=== PATIENT | female | born 1950 | race Caucasian/White ===

== ENCOUNTER → 2017-01-12 | Outpatient (CLI) | payer MEDICARE ==
[~2017-01-12] MED LIST: LEVE500T56 PO
--- NOTE | 2017-01-12 14:04 | CARD ---
APPROVED REPORT EXAM: LIMITED Two-dimensional echocardiogram. Other Information Quality : GoodHR: 51bpm Rhythm : Bradycardia INDICATION Breast cancer RISK FACTORS Hypertension Obesity 2D DIMENSIONS RVDd3.1 (2.9-3.5cm)Left Atrium(2D)4.7 (1.6-4.0cm) IVSd1.1 (0.7-1.1cm)Aortic Root(2D)2.3 (2.0-3.7cm) LVDd3.5 (3.9-5.9cm)LVOT Diameter2.2 (1.8-2.4cm) PWd1.1 (0.7-1.1cm)LVDs2.2 (2.5-4.0cm) FS (%) 36.8 %SV33.7 ml LVEF(%)67.7 (>50%) LEFT VENTRICLE The left ventricle is normal size. There is mild concentric left ventricular hypertrophy. The left ve ntricular systolic function is normal and the ejection fraction is within normal range. The Ejection Fraction is 65-70%. There is normal LV segmental wall motion. RIGHT VENTRICLE The right ventricle is normal size. There is normal right ventricular wall thickness. The right ventr icular systolic function is normal. ATRIA The left atrium is severely dilated. The right atrium size is normal. AORTIC VALVE The aortic valve is normal in structure and function. GREAT VESSELS The aortic root is normal in size. The ascending aorta is normal in size. The IVC is normal in size a nd collapses >50% with inspiration. PERICARDIAL EFFUSION There is no evidence of significant pericardial effusion. Critical Notification Critical Value: No <Conclusion> The left ventricular systolic function is normal and the ejection fraction is within normal range. Th e Ejection Fraction is 65-70%. There is normal LV segmental wall motion. The left atrium is severely dilated.
== END | disposition home or self-care (01) ==
LOC: ECHO 09:52
PROVIDERS: ATTEND Internal Medicine Hematology & Oncology
DX: C50.919 Malignant neoplasm of unspecified site of unspecified female breast (principal); I51.7 Cardiomegaly
CPT/HCPCS: 93308

== ENCOUNTER → 2018-03-16 | Day surgery (SDC) | payer MEDICARE ==
[~2018-03-16] MED LIST changes: -LEVE500T56 PO; +LIDOCAINE 2% PF Vial for OR 5 ML VIAL.; +PROPOFOL 0 ML IV; +PROPOFOL 20 ML IV
== END | disposition home or self-care (01) ==
LOC: SURG 09:05
DX: Z12.11 Encounter for screening for malignant neoplasm of colon (principal); K64.0 First degree hemorrhoids; K57.30 Diverticulosis of large intestine without perforation or abscess without bleeding; I10 Essential (primary) hypertension; E03.9 Hypothyroidism, unspecified; Z85.3 Personal history of malignant neoplasm of breast; Z86.010 Personal history of colon polyps; Z90.49 Acquired absence of other specified parts of digestive tract; Z79.899 Other long term (current) drug therapy; Z90.710 Acquired absence of both cervix and uterus; Z98.51 Tubal ligation status; Z98.890 Other specified postprocedural states; Z80.0 Family history of malignant neoplasm of digestive organs; Z82.49 Family history of ischemic heart disease and other diseases of the circulatory system; Z88.8 Allergy status to other drugs, medicaments and biological substances
CPT/HCPCS: G0105; J2704

== ENCOUNTER → 2019-02-14 | Outpatient (CLI) | payer MEDICARE ==
[2018-03-16 10:12] VITALS: BP 114/70
[~2019-02-14] MED LIST changes: +LEVE500T56 PO; +LEVO125T5 PO; -LIDOCAINE 2% PF Vial for OR 5 ML VIAL.; +LISI-334 PO; -PROPOFOL 0 ML IV; -PROPOFOL 20 ML IV
--- NOTE | 2019-02-14 14:17 | KCIC ---
EXAM: AP, lateral and tangential patellar views left knee DATE: 02/14/2019 12:00 AM INDICATION: Left knee pain COMPARISON: No Prior FINDINGS: No evidence of acute fracture or dislocation. Decreased bone mineral density. Moderate medial compartment joint space narrowing with tricompartmental osteophytes. No knee joint effusion. Subtle calcifications of the joint line likely chondrocalcinosis. Borderline lateral patellar tracking. IMPRESSION: 1. No evidence of acute fracture or dislocation. 2. Left knee joint osteoarthritis with medial compartment joint space narrowing. 3. Subtle joint line calcification likely chondrocalcinosis and CPPD arthropathy. Electronically signed by: Yoav Roca MD (02/14/2019 2:09 PM) [facility]-KCIC2
== END | disposition home or self-care (01) ==
LOC: KCIC 10:22
PROVIDERS: ATTEND Nurse Practitioner Gerontology
DX: M17.12 Unilateral primary osteoarthritis, left knee (principal); M25.762 Osteophyte, left knee
CPT/HCPCS: 73562

== ENCOUNTER → 2020-05-04 | Outpatient (CLI) | payer MEDICARE ==
[2018-03-16 10:12] VITALS: BP 114/70
[~2020-05-04] MED LIST changes: +ASPI81TA59 PO
== END | disposition home or self-care (01) ==
LOC: LAB 13:58
PROVIDERS: ATTEND Internal Medicine Gastroenterology
DX: Z11.59 Encounter for screening for other viral diseases (principal)
CPT/HCPCS: U0003-CS

== ENCOUNTER → 2020-05-08 | Day surgery (SDC) | payer MEDICARE ==
[~2020-05-08] MED LIST changes: +IV RINGERS,LACTATED 1000ML 1,000 ML IV SCH; +ONDANSETRON PF 4 MG/2 ML VIAL. IV PRN; +PROCHLORPERAZINE 10 MG/2 ML VIAL. IV PRN; +PROPOFOL 10 MG/ML (20ML) VIAL. IV ONE; +fentaNYL PF VIAL 100 MCG/2 ML VIAL IV PRN
[2020-05-08 09:37] VITALS: BP 154/72
--- NOTE | 2020-05-08 14:35 | CONS ---
DATE OF CONSULTATION: 05/08/2020 REFERRING PHYSICIAN: Cesar Bhatia. REASON FOR CONSULTATION: MSH2 breast cancer gene, increased risk of gastric cancer and GERD. HISTORY OF PRESENT ILLNESS: A 70-year-old female with past medical history significant for hypothyroidism, hypertension, and history of colonic polyps, who is seen for interval endoscopy. She does have increased heartburn. She also has MSH2 positive gene, which increases the risk of gastric cancer and endoscopy is recommended to further assess. There has been no weight loss, no change in appetite. No bleeding. She is otherwise without additional complaints. PAST MEDICAL HISTORY: Significant for hypertension, hypothyroidism, and history of colonic polyps. FAMILY HISTORY: Breast cancer with MSH2 gene. ALLERGIES: SULFA, CODEINE, AND ACTOS. MEDICATIONS: Include aspirin, Keppra, levothyroxine, and lisinopril. FAMILY AND SOCIAL HISTORY: She is a nondrinker and nonsmoker. PAST SURGICAL HISTORY: Appendectomy, breast surgery, , cholecystectomy, eye surgery, hysterectomy, tonsillectomy, and tubal ligation. REVIEW OF SYSTEMS: Per records. PHYSICAL EXAMINATION: GENERAL: Reveals a well-nourished, well-developed female, alert, cooperative, in no acute distress. VITAL SIGNS: Temperature 97.5, pulse 61, and respirations 20. LUNGS: Clear. CARDIOVASCULAR: Reveals an S1 and S2 without S3, S4 or appreciable murmur. ABDOMEN: With a soft abdomen, normal bowel sounds, without appreciable hepatosplenomegaly. Multiple surgical incisions. EXTREMITIES: Reveals no cyanosis, clubbing or edema. IMPRESSION: Reflux with MSH2 gene, increased risk of gastric cancer. Interval EGD is recommended. Risks and benefits of procedure including risk of hemorrhage and perforation were discussed. The patient is willing to proceed at this time. ROBB BABB MD DR: NIGHAT/cherry JOB#: [id number] / [id number] LAURA Avery MD, W MD
--- NOTE | 2020-05-11 16:06 | PATHOLOGY ---
[facility] Accession Number: [id number] . 01 Material submitted: . PART A: stomach - GASTRIC BODY POLYP PART B: esophagus - ESOPHAGEAL BX . 01 Clinical history: . MSH2 gene mutation . 02 Diagnosis: A. Gastric biopsies, gastric body polyps; - Funduc gland polyps, with focal mild chronic inflammation. . B. 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 (JPM:balaji; 05/11/2020) S 05/11/2020 0921 Local . 02 Comment: Sections of the gastric biopsy reveal two fundic gland polyps showing focal mild chronic inflammation. There are no adenomatous changes or evidence of malignancy. . 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 There is no dysplasia or evidence of malignancy. (JPM:balaji; 05/11/2020) . 02 Electronically signed: . Tristan Cameron MD, Pathologist NPI- [id number] . 01 Gross description: . A. The specimen is received in formalin, labeled "Loretta, Samantha, gastric body polyp" and consists of 2 fragments of pink-mary tissue measuring 0.3 x 0.3 cm which are entirely submitted in A1. . B. The specimen is received in formalin, labeled "Devault, Samantha, esophageal BX rule out Garrison's" and consists of 3 fragments of pink-amry tissue measuring between 0.2 x 0.2 cm and 0.3 x 0.3 cm which are entirely submitted in B1. (SDY; 05/08/2020) SYU/SYU 05/08/2020 1617 Local . 02 Pathologist provided ICD-10: K31.7, K20.9 . 02 CPT . 856644, [id number] Specimen Comment: A courtesy copy of this report has been sent to [phone], [phone] Specimen Comment: [id number], Specimen Comment: Report sent to ,DR MORALES / DR PRATER Performed at: [address] [facility] [address], [place] [id number] MD Cesar Arnold MD Phone: [phone] Performed at: 02 [facility] [place] [address] [place], [place] [id number] MD Tristan Cameron MD Phone: [phone]
== END ==
LOC: ENDOS 07:37
PROVIDERS: ATTEND Internal Medicine Gastroenterology
DX: K21.0 Gastro-esophageal reflux disease with esophagitis (principal); K29.50 Unspecified chronic gastritis without bleeding; K31.7 Polyp of stomach and duodenum; I10 Essential (primary) hypertension; E78.00 Pure hypercholesterolemia, unspecified; E03.9 Hypothyroidism, unspecified; Z88.1 Allergy status to other antibiotic agents; Z88.5 Allergy status to narcotic agent; Z88.8 Allergy status to other drugs, medicaments and biological substances; Z90.49 Acquired absence of other specified parts of digestive tract; Z90.710 Acquired absence of both cervix and uterus; Z98.890 Other specified postprocedural states; Z98.51 Tubal ligation status
CPT/HCPCS: 43239; 88305; J2704

== ENCOUNTER → 2021-08-09 | Outpatient (CLI) | payer MEDICARE ==
[2020-05-08 09:37] VITALS: BP 154/72
[~2021-08-09] MED LIST changes: -IV RINGERS,LACTATED 1000ML 1,000 ML IV SCH; -LISI-334 PO; +LISI20TA18 PO; -ONDANSETRON PF 4 MG/2 ML VIAL. IV PRN; -PROCHLORPERAZINE 10 MG/2 ML VIAL. IV PRN; -PROPOFOL 10 MG/ML (20ML) VIAL. IV ONE; -fentaNYL PF VIAL 100 MCG/2 ML VIAL IV PRN
--- NOTE | 2021-08-09 12:02 | KCIC ---
EXAM: Right knee, 3 views. HISTORY: Chronic pain. COMPARISON: 02/14/2019 FINDINGS: 3 views of the right knee are obtained. There is medial compartment joint space narrowing, subchondral sclerosis and spurring. There is mild lateral and patellofemoral compartment spurring. Th ere is a small joint effusion. There is no fracture, dislocation or subluxation. IMPRESSION: Mild medial compartment predominant osteoarthritis of the right knee with small joint eff usion. Electronically signed by: Drea Berg MD (08/09/2021 12:00 PM) [id number]
== END ==
LOC: KCIC 10:18
PROVIDERS: ATTEND Family Medicine
DX: M17.11 Unilateral primary osteoarthritis, right knee (principal); M25.461 Effusion, right knee; M25.861 Other specified joint disorders, right knee
CPT/HCPCS: 73562